=== PATIENT | male | born 1980 | race Caucasian/White ===

== ENCOUNTER 2020-05-28 12:35 | Emergency (ER) | payer SELFPAY ==
[2020-05-28 13:21] VITALS: BP 145/95; PULSE 92; TEMP 98.1; BMI 30.2
[2020-05-28 14:15] LABS: THROAT:GRP A STREP Negative (Negative)
== END 2020-05-28 15:18 | disposition home or self-care (01) ==
LOC: JER 12:35
DX: J02.9 Acute pharyngitis, unspecified (principal)
CPT/HCPCS: 87070; 87880; 99283-25; C9803; U0003

== ENCOUNTER 2020-09-10 15:51 | Emergency (ER) | payer OTHER ==
[2020-09-10 16:17] VITALS: TEMP 98.7; BMI 28.7
[2020-09-10] MEDS ORDERED: LORazepam 1 MG TABLET ONE (16:44)
[2020-09-10] MEDS ORDERED: LORazepam 1 MG TABLET PO ONE (16:45)
[2020-09-10 17:21] VITALS: BP 137/86; PULSE 94
== END 2020-09-10 17:22 | disposition home or self-care (01) ==
LOC: JER 15:51
DX: R20.9 Unspecified disturbances of skin sensation (principal)
CPT/HCPCS: 93005; 93010; 99284-25

== ENCOUNTER 2020-11-22 19:03 | Emergency (ER) | payer OTHER ==
[2020-11-22 19:19] VITALS: TEMP 98; BMI 31.2
[2020-11-22] MEDS ORDERED: SODIUM CHLORIDE 0.9% 500 ML INFUS.BAG IV ONE (20:18)
[2020-11-22 21:37] LABS: BASO % 0.6 % (0-2.0); HEMATOCRIT 42.6 % (35.4-49); HEMOGLOBIN 14.9 GM/dL (11.7-16.9); LYMPH % 30.9 % (8-40); MCH 30.8 pg (25.7-33.7); MCHC 34.8 g/dl (32.0-35.9); MEAN CELL VOLUME 88.4 fl (80-96); MEAN PLT VOLUME 7.1 fl (7.5-11.1); MONO % 8.8 % (3.8-10.2); NEUT % 58.7 % (42.8-82.8); PLATELET COUNT 300 10^3/uL (134-434); RBC 4.82 M/mm3 (4.00-5.60); RDW 12.3 % (11.9-15.9)
[2020-11-22 22:09] LABS: CHLORIDE 104 mmol/L (98-107); SODIUM 139 mmol/L (136-145)
[2020-11-22 22:11] LABS: ANION GAP 7 MMOL/L (8-16); CALCIUM 8.8 mg/dL (8.5-10.1); CO2 28 mmol/L (21-32); GLUCOSE,RANDOM 96 mg/dL (74-106)
[2020-11-22 22:12] LABS: ALBUMIN 4.3 g/dl (3.4-5.0)
[2020-11-22 22:14] LABS: SGPT/ALT 42 U/L (13-61)
[2020-11-22 22:15] LABS: CREATININE 0.9 mg/dL (0.55-1.3); SGOT/AST 21 U/L (15-37)
[2020-11-22 22:16] LABS: BILIRUBIN,TOTAL 0.6 mg/dL (0.2-1)
[2020-11-22 22:17] LABS: ALK PHOS 77 U/L (45-117)
[2020-11-22 22:40] VITALS: BP 141/87; PULSE 87
== END 2020-11-22 23:01 | disposition home or self-care (01) ==
LOC: JER 19:03
DX: F41.9 Anxiety disorder, unspecified (principal)
CPT/HCPCS: 36415; 80053; 84443; 84484; 85025; 93005; 93010; 99283-25

== ENCOUNTER 2022-12-04 17:28 | Emergency (ER) | payer OTHER ==
[2022-12-04 17:50] VITALS: BP 123/95; PULSE 85; RESP 20; TEMP 98.4; BMI 31.2
[2022-12-04] MEDS ORDERED: SODIUM CHLORIDE 0.9% 500 ML INFUS.BAG IV ONE (18:44)
[2022-12-04 19:30] LABS: BASO % 1.3 % (0-2.0); EOS % 2.1 % (0-4.5); HEMATOCRIT 45.1 % (35.4-49); HEMOGLOBIN 14.9 GM/dL (11.7-16.9); LYMPH % 28.1 % (8-40); MCH 30.2 pg (25.7-33.7); MCHC 33.1 g/dl (32.0-35.9); MEAN CELL VOLUME 91.4 fl (80-96); MEAN PLT VOLUME 8.2 fl (7.5-11.1); NEUT % 59.5 % (42.8-82.8); PLATELET COUNT 285 10^3/uL (134-434); RBC 4.94 M/mm3 (4.00-5.60); RDW 12.7 % (11.9-15.9); WHITE BLOOD COUNT 8.1 K/mm3 (4.0-10.0)
[2022-12-04 20:16] LABS: POTASSIUM 3.8 mmol/L (3.5-5.1)
[2022-12-04 20:20] LABS: BLOOD UREA NITROGEN 12.3 mg/dL (7-18); CALCIUM 8.8 mg/dL (8.5-10.1)
[2022-12-04 20:21] LABS: ALBUMIN 4.1 g/dl (3.4-5.0)
[2022-12-04 20:23] LABS: CREATININE 0.9 mg/dL (0.55-1.3)
[2022-12-04 20:25] LABS: TOT PROT 7.7 g/dl (6.4-8.2)
[2022-12-04 20:29] LABS: BILIRUBIN,TOTAL 0.3 mg/dL (0.2-1)
== END 2022-12-04 21:12 | disposition home or self-care (01) ==
LOC: JER 17:28
DX: K04.7 Periapical abscess without sinus (principal); T36.95XA Adverse effect of unspecified systemic antibiotic, initial encounter; R53.83 Other fatigue; R11.0 Nausea; R42 Dizziness and giddiness; R10.9 Unspecified abdominal pain; I10 Essential (primary) hypertension
CPT/HCPCS: 36415; 80053; 83690; 85025; 99284-25

== ENCOUNTER 2024-04-20 18:19 | Emergency (ER) | payer OTHER ==
[2024-04-20 18:34] VITALS: BP 152/91; PULSE 97; RESP 18; TEMP 99.8; BMI 27.6
[2024-04-20] MEDS ORDERED: ACETAMINOPHEN 325 MG TABLET (FP) ONE (20:46)
[2024-04-20] MEDS ORDERED: MECLIZINE HCL 25 MG TABLET (FP) ONE (20:46)
[2024-04-20] MEDS: MECLIZINE HCL 25 MG TABLET (FP) PO ONE (21:05)
[2024-04-20 21:10] LABS: BASO % 1.2 % (0-2.0); EOS % 1.4 % (0-4.5); HEMATOCRIT 44.4 % (35.4-49); HEMOGLOBIN 15.2 GM/dL (11.7-16.9); LYMPH % 39.4 % (8-40); MCH 30.7 pg (25.7-33.7); MCHC 34.2 g/dl (32.0-35.9); MEAN PLT VOLUME 7.5 fl (7.5-11.1); MONO % 7.5 % (3.8-10.2); NEUT % 50.5 % (42.8-82.8); PLATELET COUNT 254 10^3/uL (134-434); RBC 4.93 M/mm3 (4.00-5.60); RDW 13.1 % (11.9-15.9); WHITE BLOOD COUNT 6.8 K/mm3 (4.0-10.0)
[2024-04-20] MEDS: ACETAMINOPHEN 500 MG TABLET (FP) PO ONE (21:12)
[2024-04-20] MEDS: ACETAMINOPHEN 325 MG TABLET (FP) PO ONE (21:13)
[2024-04-20 21:45] LABS: POTASSIUM 3.9 mmol/L (3.5-5.1)
[2024-04-20 21:47] LABS: CALCIUM 9.1 mg/dL (8.5-10.1)
[2024-04-20 21:48] LABS: BLOOD UREA NITROGEN 13.7 mg/dL (7-18)
[2024-04-20 21:52] LABS: BILIRUBIN,TOTAL 0.4 mg/dL (0.2-1); TOT PROT 7.5 g/dl (6.4-8.2)
== END 2024-04-20 23:37 | disposition home or self-care (01) ==
LOC: JER 18:19
DX: R51.9 Headache, unspecified (principal); R42 Dizziness and giddiness; Z20.822 Contact with and (suspected) exposure to COVID-19
CPT/HCPCS: 0241U-QW; 36415; 71046-TC-FY; 80053; 83735; 84484; 85025; 93005; 93010; 99285-25